=== PATIENT | female | born 1975 | race Caucasian/White ===

== ENCOUNTER 2021-09-08 17:32 | Emergency (ER) | payer MEDICAID ==
[~2021-09-08] VITALS: Ht 162.6 cm; Wt 80.0 kg
[~2021-09-08 17:32] MED LIST: FERR-63 PO; IBUP-779 PO; IRON-16 PO; MULT-1146 PO; PRENATAL ONE T1 EACH PO
[2021-09-08 17:41] VITALS: BP 182/91
[2021-09-08] MEDS ORDERED: ACETAMINOPHEN 325MG TABLET PO ONE (18:45)
[2021-09-08] MEDS ORDERED: KETOROLAC 60MG/2ML VIAL IM ONE (21:00)
[2021-09-08] MEDS ORDERED: IBUP-2030 MT (21:11)
[2021-09-08] MEDS ORDERED: METH-773 MT (21:11)
== END 2021-09-08 21:30 | disposition home or self-care (01) ==
LOC: ER 17:32
DX: S09.90XA Unspecified injury of head, initial encounter (principal); M54.40 Lumbago with sciatica, unspecified side; M54.2 Cervicalgia; Z98.890 Other specified postprocedural states; W18.30XA Fall on same level, unspecified, initial encounter; Y93.89 Activity, other specified; Y92.89 Other specified places as the place of occurrence of the external cause; Y99.8 Other external cause status
CPT/HCPCS: 72070; 72100; 99284